=== PATIENT | female | born 1945 | race Caucasian/White ===

== ENCOUNTER 2016-10-07 14:56 | Emergency (ER) | payer MEDICARE, BC ==
[~2016-10-07] VITALS: Ht 160 cm; Wt 113.6 kg
[~2016-10-07 14:56] MED LIST: ASPIRIN EC81 MG PO; DIOVAN80 MG PO; FLEXERIL10 MG PO; FOLIC ACID1 MG PO; KEFLEX500 MG PO; LORTAB 10-325 M1 TAB PO; MAGNESIUM250 M1 PO; NADOLOL PO; NADOLOL20 MG OR; NADOLOL20 MG PO; PENICILLN VK500 M1 OR; PREVACID30 M1 PO; PROLIA60 MG/ML SC; PROTONIX40 M2 PO; TRAMADOL HCL50 MG PO; ZOFRAN4 MG PO; [UNRECOGNIZED DRUG - CODE] PO
[2016-10-07] MEDS ORDERED: ZOFRAN ODT4 MG PO (16:14)
[2016-10-07] MEDS ORDERED: PERCOCET 10/31 COMBO PO (16:14)
[2016-10-07 16:19] VITALS: BP 155/92
== END 2016-10-07 16:33 | disposition home or self-care (01) ==
LOC: ED 14:56
DX: S39.012A Strain of muscle, fascia and tendon of lower back, initial encounter (principal); M47.9 Spondylosis, unspecified; X50.1XXA Overexertion from prolonged static or awkward postures, initial encounter; Y93.89 Activity, other specified; Y92.002 Bathroom of unspecified non-institutional (private) residence as the place of occurrence of the external cause

== ENCOUNTER 2017-01-10 13:14 | Emergency (ER) | payer MEDICARE, BC ==
[~2017-01-10] VITALS: Ht 160 cm; Wt 97.7 kg
[~2017-01-10 13:14] MED LIST changes: +PERCOCET 10/31 COMBO PO; +ZOFRAN ODT4 MG PO
[2017-01-10] MEDS ORDERED: ULTRAM50 M1 PO (13:51)
[2017-01-10] MEDS ORDERED: OMEPRAZOLE10 MG PO (13:52)
[2017-01-10] MEDS ORDERED: INDERAL10 MG PO (13:53)
[2017-01-10] MEDS ORDERED: COLACE100 MG PO (13:54)
[2017-01-10 15:42] VITALS: BP 127/88
== END 2017-01-10 15:44 ==
LOC: ED 13:14
DX: R18.8 Other ascites (principal); T81.4XXA Infection following a procedure, initial encounter; I10 Essential (primary) hypertension; M19.90 Unspecified osteoarthritis, unspecified site; I85.00 Esophageal varices without bleeding; K76.89 Other specified diseases of liver; Y83.9 Surgical procedure, unspecified as the cause of abnormal reaction of the patient, or of later complication, without mention of misadventure at the time of the procedure

== ENCOUNTER → 2018-08-08 | Outpatient (REF) | payer MEDICARE, BC ==
[~2018-08-08] MED LIST changes: +COLACE100 MG PO; +INDERAL10 MG PO; +OMEPRAZOLE10 MG PO; +ULTRAM50 M1 PO
[2018-08-08 10:15] LABS: HEMATOCRIT 39.7 % (37.0-47.0); HEMOGLOBIN 13.8 g/dl (12.0-16.0); MEAN CELL VOLUME 97.1 fL CALC (80.0-100.0); MEAN CORPUSCULAR HGB 33.7 pG CALC (26.0-32.0); MEAN CORPUSCULAR HGB CONC 34.8 g/L CALC (32.0-36.0); RED BLOOD COUNT 4.09 mill/uL (4.20-5.60); RED CELL DISTRI WIDTH 14.4 % (11.5-15.5)
[2018-08-08 10:48] LABS: ALBUMIN 3.9 g/dL (3.2-5.0); ALKALINE PHOSPHATASE 85 u/l (38-126); ANION GAP 12 (6-22 (CALC)); BUN 18 mg/dL (8-23); BUN/CREATININE RATIO 18 (12-20 (CALC)); CARBON DIOXIDE 27 mmol/l (22-30); CHLORIDE 107 mmol/l (95-108); GFR 55 ML/MIN (>=60 (CALC)); GFR FOR AFR.AMER. > 60 ML/MIN (>=60 (CALC)); POTASSIUM 4.5 mmol/l (3.5-5.1); SGOT/AST 46 u/l (9-36); SODIUM 141 mmol/l (137-146); TOTAL PROTEIN 6.9 g/dL (6.3-8.2)
== END | disposition home or self-care (01) ==
LOC: LAB 09:51
PROVIDERS: ATTEND Internal Medicine
DX: K74.69 Other cirrhosis of liver (principal); R73.03 Prediabetes

== ENCOUNTER 2022-05-23 23:31 | Emergency (ER) | payer MEDICARE, BC ==
[~2022-05-23] VITALS: Ht 160 cm; Wt 95.0 kg
[2022-05-23 23:37] VITALS: BP 111/55
[2022-05-23 23:45] VITALS: BP 108/52
[2022-05-23] MEDS ORDERED: FUROSEMIDE20 MG PO (23:51)
[2022-05-23] MEDS ORDERED: SILDENAFIL CITR20 M1 (23:51)
[2022-05-23] MEDS ORDERED: SPIRONOLACT50 MG PO (23:51)
[2022-05-23] MEDS ORDERED: BENZONATATE150 MG (23:52)
[2022-05-23] MEDS ORDERED: OPSUMIT10 MG (23:52)
[2022-05-24] VITALS (12 sets, daily range): BP systolic 84–123; BP diastolic 35–75
[2022-05-24 00:25] LABS: BASO% 0.6 % (0-3); HEMATOCRIT 32.1 % (37.0-47.0); HEMOGLOBIN 11.3 g/dl (12.0-16.0); IMMATURE GRANULOCYTES 0.8 % (0.0-5.0); LYMPH% 9.9 % (15-41); MEAN CORPUSCULAR HGB 39.1 pG CALC (26.0-32.0); MEAN CORPUSCULAR HGB CONC 35.2 g/dL CAL (32.0-36.0); MONO% 10.5 % (2-13); NEUT# 3.81 thou/uL (2.00-7.15); NEUT% 75.2 % (42-76); RED BLOOD COUNT 2.89 mill/uL (4.20-5.60); RED CELL DISTRI WIDTH 17.4 % (11.5-15.5)
[2022-05-24 00:26] LABS: MEAN CELL VOLUME 111.1 fL CALC (80.0-100.0)
[2022-05-24 00:31] LABS: ALBUMIN 2.9 g/dL (3.2-5.0); ALKALINE PHOSPHATASE 101 u/l (38-126); BUN 22 mg/dL (8-23); BUN/CREATININE RATIO 18 (12-20 (CALC)); CHLORIDE 106 mmol/l (95-108); CPK 109 u/l (30-165); CREATININE 1.2 mg/dL (0.5-1.0); GFR FOR AFR.AMER. 53 ML/MIN (>=60 (CALC)); GFR OTHER RACES 44 ML/MIN (>=60 (CALC)); MAGNESIUM 2.1 mg/dL (1.6-2.3); POTASSIUM 4.5 mmol/l (3.5-5.1); SGOT/AST 52 u/l (9-36); TOTAL PROTEIN 5.7 g/dL (6.3-8.2)
[2022-05-24 00:41] LABS: ANION GAP 12 (6-22 (CALC)); BILIRUBIN, TOTAL 5.2 mg/dL (0.0-1.4); CARBON DIOXIDE 19 mmol/l (22-30); SODIUM 132 mmol/l (137-146)
[2022-05-24 00:45] LABS: MYOGLOBIN 228 ng/mL (0 - 62)
[2022-05-24 01:03] LABS: TSH, 3RD GENERATION 5.62 uIU/mL (0.47 - 4.68)
[2022-05-24 01:51] LABS: URINE BLOOD DIPSTICK NEGATIVE (NEGATIVE); URINE COLOR YELLOW; URINE GLUCOSE - DIPSTICK NEGATIVE (NEGATIVE); URINE KETONE TRACE mg/dL (NEGATIVE); URINE LEUK ESTERASE NEGATIVE (NEGATIVE); URINE PH 5.5 (4.5-8.0); URINE PROTEIN - DIPSTICK NEGATIVE (NEG-TRACE); URINE SPECIFIC GRAVITY >=1.030
[2022-05-24 02:04] LABS: URINE BILIRUBIN - DIPSTICK MODERATE (NEGATIVE)
[2022-05-24 02:05] LABS: URINE NITRITE - DIPSTICK NEGATIVE (Negative)
== END 2022-05-24 02:44 | disposition home or self-care (01) ==
LOC: ED 23:31
PROVIDERS: Family Medicine
DX: R53.1 Weakness (principal); I10 Essential (primary) hypertension; I27.20 Pulmonary hypertension, unspecified; Z99.81 Dependence on supplemental oxygen; Z20.822 Contact with and (suspected) exposure to COVID-19